=== PATIENT | female | born 1950 | race Caucasian/White ===

== ENCOUNTER 2024-04-12 13:03 | Observation (INO) | payer MEDICARE, SELFPAY ==
[2024-04-12] VITALS (10 sets, daily range): BP systolic 117–169; BP diastolic 70–88; PULSE 80–166; RESP 15–22; TEMP 36.6–36.7; O2SAT 94–97; BMI 31.0
--- NOTE | 2024-04-12 13:20 | ECG_ITS ---
[facility] Test Date: 2024-04-12 Pat Name: Daniela Gray Department: Room: Gender: Female Assistant Account Executive: : 1950 Requested By: Krystian Liu Order Number: [id number] Bobby MD: Aleks Delaney M.D. Measurements Intervals [place] Rate: 111 P: 0 ME: 0 QRS: 61 QRSD: 86 T: 8 QT: 344 QTc: 469 Interpretive Statements ATRIAL FIBRILLATION WITH RAPID VENTRICULAR RESPONSE NONSPECIFIC ST & T-WAVE ABNORMALITY No previous ECG available for comparison Electronically Signed On 04-13-2024 21:57:51 NEW CAR MAKE READY WORKER by Aleks Delaney M.D. [id number]
--- NOTE | 2024-04-12 13:33 | XR_ITS ---
WS: [id number] Portable AP upright chest, 04/12/2024 Clinical Data: sob Comparison: None. Findings: No nodules, masses or effusions are seen. The heart is normal. The pulmonary vascularity is not increased. No pneumonia or pneumothorax is seen. The aortic arch shows mild tortuosity. There are monitor leads on the chest wall. XR/XR chest 1V portable [id number] Impression: Atherosclerosis.
--- NOTE | 2024-04-12 13:56 | ECG_ITS ---
[facility] Test Date: 2024-04-12 Pat Name: Daniela Gray Department: Room: Gender: Female Manager Food Safety: : 1950 Requested By: Krystian Liu Order Number: [id number] Bobby MD: Aleks Delaney M.D. Measurements Intervals [place] Rate: 83 P: -12 DE: 141 QRS: 52 QRSD: 80 T: 45 QT: 362 QTc: 427 Interpretive Statements SINUS RHYTHM NONSPECIFIC T-WAVE ABNORMALITY Compared to ECG 04/12/2024 13:23:20 Atrial fibrillation no longer present T-wave abnormality still present Electronically Signed On 04-13-2024 21:57:26 BOBCAT OPERATOR by Aleks Delaney M.D. [id number] [id number]
--- NOTE | 2024-04-12 14:01 | ED_ITS ---
HPI - Arrhythmia/Palpitations 2 General: Chief Complaint: Arrhythmia/Palpitations Stated Complaint: FLU Time Seen by Provider: 04/12/24 13:33 Source: patient Mode of arrival: ambulatory Limitations: no limitations History of Present Illness: 73-year-old female who states that she h as not felt well over the last 3 to 4 days had some flulike symptoms states she has had cough congestion and fatigue states today she had felt nervous she is also having some palpitations. Denies any chest pain denies any history of heart arrhythmias she denies any diarrhea. Related Data Home Medications ?Medication ?Instructions ?Recorded ?Confirmed alprazolam 0.5 mg tablet 0.5 mg PO TID 04/12/2404/12 baclofen 10 mg tablet 10 mg PO BID 04/12/24 fluoxetine 10 mg capsule 10 mg PO BID 04/12/24 fluticasone propionate 50 2 spray intranasal DAILY 07/3004/12/24 mcg/actuation nasal spray,suspension Allergies Allergy/AdvReac Type Severity Reaction Status Date / Time Sulfa (Sulfonamide Allergy ALGY-Rash Verified 04/12/24 13:21 Antibiotics) Course 2 Vital Signs: Vital signs: Vital Signs Temperature 98 F 04/12/24 13:15 Pulse Rate 88 04/12/24 13:15 Respiratory Rate 17 04/12/24 13:15 Blood Pressure 117/78 04/12/24 13:15 Pulse Oximetry 94 04/12/24 13:15 Oxygen Delivery Me thod Room Air 04/12/24 13:15 MDM - Arrhythmia/Palpitations Medical Decision Making Patient presents here with flulike symptoms did test positive for the flu she is also hyponatremic she did have A-fib when she first arrived but is spontaneously converted with [place]'s I spoke to hospitalist and will admit for observation. Medical Records I reviewed the patient's medical records. Lab Data I reviewed the patient's lab results. 04/12/24 13:54 04/12/24 13:54 Radiology Impressions Chest X-Ray 04/12/24 13:33 Impression: Atherosclerosis. Laboratory Results WBC 3.73 10^3/uL (3.29-11.43) 04/12/24 13:54 RBC 5.17 10^6/uL (3.85-5.65) 04/12/24 13:54 Hgb 15.20 g/dL (11.27-16.99) 04/12/24 13:54 Hct 44.7 % (36-47) 04/12/24 13:54 MCV 86.5 fl (85-98) 04/12/24 13:54 MCH 29.4 pg (27-33) 04/12/24 13:54 MCHC 34.0 g/dL (30-55) 04/12/24 13:54 RDW 13.2 % (12.1-15.1) 04/12/24 13:54 Plt Count 255 10^3/cmm (157-399) 04/12/24 13:54 MPV 10.3 fL (7.4-10.4) 04/12/24 13:54 Neut % (Auto) 68.5 % 04/12/24 13:54 Lymph % (Auto) 15.3 % 04/12/24 13:54 [place] % (Auto) 15.3 % 04/12/24 13:54 Eos % (Auto) 0.3 % 04/12/24 13:54 Baso % (Auto) 0.3 % 04/12/24 13:54 Neut # (Auto) 2.56 10^3/uL (1.8-7.7) 04/12/24 13:54 Lymph # (Auto) 0.6 10^3/uL (0.8-4.8) L 04/12/24 13:54 [place] # (Auto) 0.6 10^3/uL (0.2-0.9) 04/12/24 13:54 Eos # (Auto) 0.0 10^3/uL (0.0-0.8) 04/12/24 13:54 Baso # (Auto) 0.0 10^3/uL (0.0-0.1) 04/12/24 13:54 Nucleated RBC % (auto) 0 % 04/12/24 13:54 Nucleated RBCs # 0.0 /100WBC 04/12/24 13:54 Sodium 126 mmol/L (136-145) L 04/12/24 13:54 Potassium 4.4 mmol/L (3.5-5.1) 04/12/24 13:54 Chloride 87 mmol/L (98-107) L 04/12/24 13:54 Carbon Dioxide 25 mmol/L (22-29) 04/12/24 13:54 Anion Gap 18.4 (5-19) 04/12/24 13:54 BUN 9 mg/dL (8-23) 04/12/24 13:54 Creatinine 0.6 mg/dL (0.5-0.9) 04/12/24 13:54 GFR Calculation Not Reportable 04/12/24 13:54 Glucose 110 mg/dL (65-115) 04/12/24 13:54 Calculated Osmolality 261 mOsm/kg (285-295) L 04/12/24 13:54 Calcium 9.0 mg/dL (8.5-10.5) 04/12/24 13:54 Magnesium 2.0 mg/dL (1.7-2.3) 04/12/24 13:54 Total Bilirubin 0.4 mg/dL (0.15-1.2) 04/12/24 13:54 AST 21 U/L (0-32) 04/12/24 13:54 ALT 14 U/L (0-33) 04/12/24 13:54 Alkaline Phosphatase 112 U/L (35-105) H 04/12/24 13:54 Troponin T Baseline 10 ng/L (0-10) 04/12/24 13:54 Total Protein 7.6 g/dL (6.6-8.7) 04/12/24 13:54 Albumin 4.7 g/dL (3.5-5.2) 04/12/24 13:54 Globulin 2.9 g/dL (1.3-4.6) 04/12/24 13:54 TSH 2.85 uIU/mL (0.27-4.20) 04/12/24 13:54 Urine Color Yellow (Yellow) 04/12/24 14:43 Urine Appearance Clear (CLEAR) 04/12/24 14:43 Urine pH 6.0 (5-7) 04/12/24 14:43 Ur Specific [place] 1.016 (1.005-1.030) 04/12/24 14:43 Urine Protein 2+ (Negative) A 04/12/24 14:43 Urine Glucose (UA) Negative (Normal) 04/12/24 14:43 Urine Ketones 3+ (Negative) H 04/12/24 14:43 Urine Blood Negative (Negative) 04/12/24 14:43 Urine Nitrate Negative (Negative) 04/12/24 14:43 Urine Bilirubin Negative (Negative) 04/12/24 14:43 Urine Urobilinogen 0.2 mg/dL (Negative) 04/12/24 14:43 Ur Leukocyte Esterase Negative (Negative) 04/12/24 14:43 Urine RBC 11-20 /hpf (0-2) H 04/12/24 14:43 Urine WBC 0-5 /hpf (0-5) 04/12/24 14:43 Ur Squamous Epith Cells 0-5 /hpf (0-5) 04/12/24 14:43 Amorphous Sediment Not Reportable 04/12/24 14:43 Urine Bacteria Trace /hpf (NONE) 04/12/24 14:43 Hyaline Casts 6.17 /lpf 04/12/24 14:43 Coronavirus (PCR) Negative (Negative) 04/12/24 15:19 Influenza A (PCR) Positive (Negative) 04/12/24 15:19 Influenza Type B (PCR) Negative (Negative) 04/12/24 15:19 RSV (PCR) Negative (Negative) 04/12/24 15:19 All radiology interpretation(s) finalized by discharge EKG Data EKG 1: I personally reviewed and interpreted this EKG as follows: EKG interpretation date: 04/12/24 EKG interpretation time: 13:23 Interpretation: afib hr [address] elevation qrs 86 qtc 410 Other EKG comments: Chest X-Ray 04/12/24 13:33 Impression: Atherosclerosis. EKG 2: I personally reviewed and interpreted this EKG as follows: EKG interpretation date: 04/12/24 EKG interpretation time: 14:28 Interpretation: nsr hr [address] or t wave abnormalities qrs 80 qtc 402 Other EKG comments: Chest X-Ray 04/12/24 13:33 Impression: Atherosclerosis. Discharge Plan Discharge Patient Disposition: Admitted As Inpatient Clinical Impression: Influenza A, Atrial fibrillation, Hyponatremia Condition: Stable Prescriptions: No Action alprazolam 0.5 mg tablet 0.5 mg PO TID baclofen 10 mg tablet 10 mg PO BID fluoxetine 10 mg capsule 10 mg PO BID fluticasone propionate 50 mcg/actuation spray,suspension 2 spray INTRANASAL DAILY Referrals: Cheng,Flores, LOOM OPERATOR APPRENTICE [Primary Care Provider] - Print Language: Irish Coding Level of Care Code ED Rounding And Backing Machine Operator for Marylou Polo
[2024-04-12 14:09] LABS: Basophils % 0.3 %; Eosinophils % 0.3 %; Hematocrit 44.7 % (36-47); Lymphocytes # 0.6 10^3/uL (0.8-4.8); Lymphocytes % 15.3 %; Mean Corpuscular Hemoglobin 29.4 pg (27-33); Mean Corpuscular Volume 86.5 fl (85-98); Mean Platelet Volume 10.3 fL (7.4-10.4); Monocytes # 0.6 10^3/uL (0.2-0.9); Monocytes % 15.3 %; Neutrophils # 2.56 10^3/uL (1.8-7.7); Neutrophils % 68.5 %; Nucleated Red Blood Cells % 0 %; Platelet Count 255 10^3/cmm (157-399); Red Blood Count 5.17 10^6/uL (3.85-5.65); Red Cell Distribution Width 13.2 % (12.1-15.1); White Blood Count 3.73 10^3/uL (3.29-11.43)
[2024-04-12] MEDS: sodium chloride 0.9% 1,000 ML 999 ML IV (14:19)
[2024-04-12 14:22] LABS: Troponin(5th) Baseline 10 ng/L (0-10)
[2024-04-12 14:45] LABS: Alanine Aminotransferase 14 U/L (0-33); Albumin Level 4.7 g/dL (3.5-5.2); Alkaline Phosphatase 112 U/L (35-105); Anion Gap 18.4 (5-19); Aspartate Amino Transferase 21 U/L (0-32); Blood Urea Nitrogen 9 mg/dL (8-23); Carbon Dioxide 25 mmol/L (22-29); Chloride 87 mmol/L (98-107); Creatinine Clr Calc Pharmacy 74.5029; Globulin 2.9 g/dL (1.3-4.6); Glucose 110 mg/dL (65-115); Osmolality Calculated 261 mOsm/kg (285-295); Potassium 4.4 mmol/L (3.5-5.1); Sodium 126 mmol/L (136-145); Thyroid Stimulating Hormone 2.85 uIU/mL (0.27-4.20); Total Bilirubin 0.4 mg/dL (0.15-1.2); Total Protein 7.6 g/dL (6.6-8.7)
[2024-04-12 15:01] LABS: Bilirubin Urine Negative (Negative); Blood Urine Negative (Negative); Glucose Urine UA Negative (Normal); Ketones Urine 3+ (Negative); Leukocyte Esterase Urine Negative (Negative); Nitrate Urine Negative (Negative); Protein Urine 2+ (Negative); Specific Gravity, Urine 1.016 (1.005-1.030); Urine Appearance Clear (CLEAR); Urine Color Yellow (Yellow); Urobilinogen Urine 0.2 mg/dL (Negative)
[2024-04-12 15:04] LABS: Add Urine Microscopic? YES; Bacteria Urine Trace /hpf; Hyaline Casts Urine 6.17 /lpf; Squamous Epithelial Cell Urine 0-5 /hpf (0-5); WBC Urine 0-5 /hpf (0-5)
--- NOTE | 2024-04-12 15:24 | ECG_ITS ---
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 Measurements Intervals [place] Rate: 79 P: -4 ID: 139 QRS: 54 QRSD: 86 T: 58 QT: 327 QTc: 376 Interpretive Statements SINUS RHYTHM NONSPECIFIC T-WAVE ABNORMALITY Compared to ECG 04/12/2024 14:28:32 No significant changes Electronically Signed On 04-13-2024 22:18:55 DOT NET ARCHITECT by Aleks Delaney M.D. [id number]
[2024-04-12 16:14] LABS: Influenza A POSITIVE (Negative); Influenza B NEGATIVE (Negative); Respiratory Syncytial Virus Ce NEGATIVE (Negative); SARS-CoV-2 PCR NEGATIVE (Negative)
[2024-04-12 16:55] LABS: Troponin 5 2HR 8.94 ng/L (0-10)
[2024-04-12 17:00] LABS: Troponin 5 2HR Delta -1.06 ABS# (0-10)
--- NOTE | 2024-04-12 17:00 | PM.HP ---
Providers/Chief Complaint Admitting Physician: Kat Apple MD Primary Care Provider: ASHA Jorge Chief Complaint: FLU History of Present Illness Daniela Grya is a 73 year old female with a PMH reactive airway disease, ? factor V heterozygous state, presenting to the hospital with URI type symptoms which are worsening over past 4-5 days. Patient states that her grandson was sick with FLu last week and few days afterwards she developed nasal and chest congestion with cough. She has a h/o reactive airway disease and felt herself to be wheezing. She has been usin nebulizer at home withput significant relief. Also c/o palpitations, per EMS report and ER report, she had transient A fib with RVR which resolved spontaneously. Patient stated that she has had intermittent palpiattions over the years. In her 20s, she was diagnosed with bigeminy and trigeminy rhythm after the delivery of her child. % years ago she had a holter monitor placed which was negative for any A fib but had shown multiple VPCs. SHe has taken metoprolol intermittently, but avoids using it as she feels it precipitates bronchospasm. The last time she needed this medication was 6 months ago. She has had a poor appetite and poor po intake last 3-4 days. She has been drinking gatorade and urinating a lot. Review of Systems General: Reports: 10 or more systems reviewed and unremarkable except in HPI and below Const: Denies: fever(s), chills or body aches Eyes: Denies: change in vision, blurry vision or photophobia ENMT: Reports: hoarseness; Denies: throat pain, enlarged tonsils, odynophagia or nasal congestion Card: Denies: chest pain, palpitations, irregular heart rhythm, edema, swelling of feet/ankles, lightheadedness, pre-syncope, dyspnea on exertion or orthopnea Resp: Denies: dyspnea, productive cough, non-productive cough, wheezing, stridor, pain on inspiration, change in phlegm color, hemoptysis or chest congestion GI: Denies: abdominal pain, nausea, vomiting, hematemesis, coffee ground emesis, dysphagia, heartburn, diarrhea, constipation, GI cramping, change in stool character, hematochezia or melena : Denies: flank pain, difficulty voiding, dysuria, urinary frequency, urinary urgency, urinary hesitancy or hematuria Musc: Denies: neck pain, back pain, extremity pain, joint swelling, joint warmth or deformity Neuro: Denies: headache(s), numbness in extremities, weakness in extremities, sensory changes, difficulty walking, frequent falls, dizziness, vertigo, behavioral changes, Slurred speech present or seizure-like activity Psych: Denies: anxiety, depression, suicidal ideation or homicidal ideation Endo: Denies: polyuria, polydipsia, tired all the time, cold intolerance or hot flashes Sammy/Lymph: Denies: easy bruising or easy bleeding Medications/Allergies Home Medications ?Medication ?Instructions ?Recorded ?Confirmed ?Last Taken ?Type alprazolam 0.5 mg tablet 0.5 mg PO TID PRN Anxiety 04/12/24 04/12/24 04/11/24 12:00 History baclofen 10 mg tablet 10 mg PO BID PRN Pain 04/12/24 04/12/24 03/27/24 19:00 History fluoxetine 10 mg capsule 10 mg PO BID 04/12/24 04/12/24 Unknown History fluticasone propionate 50 2 spray intranasal DAILY PRN 04/12/24 04/12/24 04/10/24 07:00 History mcg/actuation nasal Congestion spray,suspension Allergies Allergy/AdvReac Type Severity Reaction Status Date / Time Sulfa (Sulfonamide Allergy ALGY-Rash Verified 04/12/24 13:21 Antibiotics) PFSH Acute PFSH: Medical History (Updated 04/12/24 @ 21:42 by Kat Apple MD) Factor V Leiden carrier Reactive airway disease Vitals/I&O/Wt Last Vital Signs Temp 98 F 04/12/24 13:15 Pulse 88 04/12/24 13:15 Resp 17 04/12/24 13:15 BP 117/78 04/12/24 13:15 Pulse Ox 94 04/12/24 13:15 O2 Del Method Room Air 04/12/24 13:15 Weight last 48 hrs Weight 92.533 kg Physical Exam Narrative: General: No acute distress, AO x3 HEENT: PERRLA, pupils bilaterally equal and reactive, pallors not present Chest: B/L diffuse wheezing to auscultation all areas CVS: S1-S2 regular, no murmurs, no tachycardia, no gallops, no rubs Abdomen: Soft, nontender, no organomegaly, bowel sounds present Neuro: No focal deficits, no facial deformity, AO x3, power 5/5 in all limbs Extremities: no edema, clubbing or cyanosis Data 04/12/24 13:54 04/12/24 13:54 A&P Assessment and plan (1) Influenza A: patient testing + for influenza A CXR without gross consolidation Start Tamiflu 75mg BID supportive management incl nausea management (2) Reactive airway disease with acute exacerbation: likely triggered by acute viral illness with influenza Start duoneb and budesonide scheduled nebulization meythprednisone 40mg iv q24h monitor 02 saturation closely, currently at 94% on RA (3) Atrial fibrillation: reported A fib with RVR via EMS and ER resolved spontaneously has not taken any nasal decongestants Currently in sinus rhythm with HR @ 78 bpm at time of this assessment TSH WNL Previously evaluated for A fib with event monitor 5 years ago- patient states was not found to have any arrhythmias will monitor on telemetry to assess for any recurrence States she has only taken metoprolol prn previously due to concerns for bronchospasm Will prefer to use Cardizem in this setting Trop series unremarkable at 2 hrs check D dimer screen due to reported h/o ?factor V heterozygous state echocardiogram for new onset A fib (4) Hyponatremia: NA 126, may be related to dehydration and poor po intake from acute viral illness Start NS @ 50 cc /hr , repeat Na with am labs No current symptoms from hyponatremia Plan DVT ppx: lovenox Full code PDMP PDMP Reviewed: Not Reviewed Attestations Medical Necessity Statement*: less than 2 midnight stay currently anticipated Coding Level of Care Code Acute Code for Chg Fwd Diagnoses Influenza A J10.1 Reactive airway disease with acute exacerbation J45.901 Atrial fibrillation I48.91 Hyponatremia E87.1
[2024-04-12 17:26] LABS: D Dimer 0.93 ug/mLFEU (0-0.59)
[2024-04-12] MEDS: methylPREDNISolone sod succ 40 mg/mL INJ IVP (18:39)
[2024-04-12] MEDS: enoxaparin 40 mg/0.4 mL Syringe SUBCUT (18:39)
[2024-04-12] MEDS: oseltamivir phosphate 75 mg Capsule PO (18:39)
[2024-04-12] MEDS: sodium chloride 0.9% 1,000 ML 50 ML IV (18:40)
[2024-04-12 18:57] LABS: Potassium, Radom Urine 53 mmol/L; Urine Random Chloride 23 mmol/L; Urine Random Sodium 44 mmol/L
[2024-04-12] MEDS: ipratropium-albuterol 3 mL Neb INHALATION (20:41)
[2024-04-12] MEDS: budesonide 0.5 mg/2 mL Neb INHALATION (20:41)
--- NOTE | 2024-04-12 21:03 | ECG_ITS ---
[employer] Test Date: 2024-04-12 Pat Name: Daniela Gray Department: Room: 268 Gender: Female Vaccine Specialist: : 1950 Requested By: Krystian Liu Order Number: [id number] Bobby MD: Aleks Delaney M.D. Measurements Intervals [place] Rate: 150 P: 0 SD: 0 QRS: 70 QRSD: 81 T: 11 QT: 263 QTc: 415 Interpretive Statements ATRIAL FIBRILLATION WITH RAPID VENTRICULAR RESPONSE NONSPECIFIC ST & T-WAVE ABNORMALITY Compared to ECG 04/12/2024 15:24:30 Sinus rhythm no longer present T-wave abnormality still present Electronically Signed On 04-13-2024 22:17:37 WINDMILL TECHNICIAN by Aleks Delaney M.D. [id number]
[2024-04-12 21:08] LABS: Troponin 5 6HR 8.73 ng/L (0-10)
[2024-04-12 21:13] LABS: Troponin 5 6HR Delta -1.27 ng/L (0-12)
--- NOTE | 2024-04-12 21:31 | PC.NURSE ---
km in afib with rvr dr vu requesting that patient be transferred to [facility] on a [facility] drjohana
--- NOTE | 2024-04-12 21:52 | USCV_ITS ---
Daniela Gray Age: 73 Gender: F : 1950 Exam Date: 04/12/2024 23:52 Ordering Phys: Kat Apple MD Technologist: CHELY Exam Location: [facility] Indication: new Afib. BP: 169 / 70 HR: 76 Rhythm: Sinus Technical Quality: Adequate MEASUREMENTS (Male / Female) Normal Values 2D ECHO LV Diastolic Diameter PLAX 4.0 cm 4.2 - 5.9 / 3.9 - 5.3 cm IVS Diastolic Thickness 1.7 cm 0.6 - 1.0 / 0.6 - 0.9 cm IVS Systolic Thickness 2.4 cm LVPW Diastolic Thickness 1.3 cm 0.6 - 1.0 / 0.6 - 0.9 cm LVPW Systolic Thickness 1.6 cm LVOT Diameter 1.7 cm LV Ejection Fraction 2D Teich 73.8 % LV Ejection Fraction MOD 4C 62.8 % LV Ejection Fraction MOD 2C 74.5 % LV Ejection Fraction 2C AL 74.9 % LA Diameter 3.2 cm Aorta at Sinotubular Diameter 2.4 cm IVC Diameter 1.8 cm M-MODE LA Ao Ratio MM 1.7 AV Cusp Separation MM 1.6 cm DOPPLER AV Peak Velocity 139.0 cm/s LVOT Peak Velocity 103.0 cm/s AV Area Cont Eq vti 1.8 cm squared AV Area Cont Eq pk 1.6 cm squared MV Peak Velocity 120.0 cm/s MV Area PHT 3.4 cm squared Mitral E to A Ratio 0.8 TR Peak Velocity 251.0 cm/s TR Peak Gradient 25.2 mmHg TV Peak E Velocity 34.0 cm/s PV Peak Velocity 108.0 cm/s FINDINGS Left Ventricle Left ventricle is normal in size. LV systolic function is normal with EF of 65 - 70%. No regional wall motion abnormalities are seen. Grade 1 diastolic dysfunction. Right Ventricle Normal in size and function Right Atrium Normal in size Left Atrium Normal in size Mitral Valve Structurally normal mitral valve. Mild mitral regurgitation. Aortic Valve Structurally normal aortic valve. No significant stenosis. Tricuspid Valve Mild tricuspid regurgitation. Insufficient TR jet to calculate RVSP Pulmonic Valve Not well visualized Pericardium Normal Aorta Normal in size IVC Appears to be normal CONCLUSIONS LV systolic function is normal with EF of 65-70% Grade 1 diastolic dysfunction Mild mitral regurgitation Mild tricuspid regurgitation No comparison studies are available. Aleks Delaney MD (Electronically Signed) Final Date: 13 April 2024 11:10 S
[2024-04-12] MEDS: dilTIAZem 5 mg/mL SDV 5 mL 10 MG IVP (22:00)
--- NOTE | 2024-04-12 22:12 | ECG_ITS ---
[facility] Test Date: 2024-04-12 Pat Name: Daniela Gray Department: Room: 105 Gender: Female Manager Trading: : 1950 Requested By: Brandi Connors Order Number: [id number] Bobby MD: Aleks Delaney M.D. Measurements Intervals [place] Rate: 89 P: 66 HI: 141 QRS: 39 QRSD: 89 T: 35 QT: 392 QTc: 477 Interpretive Statements SINUS RHYTHM WITH OCCASIONAL SUPRAVENTRICULAR PREMATURE COMPLEXES NONSPECIFIC T-WAVE ABNORMALITY Compared to ECG 04/12/2024 21:03:03 Atrial fibrillation no longer present T-wave abnormality still present Electronically Signed On 04-13-2024 22:17:03 TELLER by Aleks Delaney M.D. [id number]
--- NOTE | 2024-04-12 22:22 | PC.NURSE ---
Attempted to notify pt listed in the chart of her room change, the number listed is not in service.
[2024-04-12] MEDS: ondansetron 2 mg/ML SDV 2 mL 4 MG IVP (22:26)
--- NOTE | 2024-04-12 22:42 | PC.NURSE ---
patient came up to the floor running afib on tele, asymptomatic. during paients breathing treatment she started running afib with RVR, heartrate in the 160s feeling shaky complaining of a headache and just no feeling well. nurse contacted dr vu he ordered cardizem 10mg IVP, nurse administered med, patients heartrate slowed down to the 120s 130s, and went right back up to 130s 140s 150s. dr vu ordered for her to be transferred to [facility] and to be started on a cardizem drip. nurse and RESERVES CLERK took patient down to [facility] report given at bedside
--- NOTE | 2024-04-12 22:54 | PC.NURSE ---
Patient bought to [facility] via bed at 2150. Report given at bedside by BK Parra. Patient is alert and oriented, vital signs WNL. Bedside telemetry appears to be sinus rhythm, obtained EKG to confirm. EKG showed sinus rhythm with occasional supraventricular premature complexes. Notified Dr. Connors to see if he still wanted to start Cardizem IV, given orders to not administer.
[2024-04-13] VITALS (13 sets, daily range): BP systolic 116–143; BP diastolic 59–74; PULSE 73–100; RESP 15–23; TEMP 36.6–37; O2SAT 93–97
[2024-04-13] MEDS: levalbuterol 0.63 mg/3 mL Neb INHALATION ×4 (01:23→20:52)
[2024-04-13] MEDS: ipratropium 0.5 mg/2.5 mL Neb INHALATION ×4 (01:24→20:52)
[2024-04-13] MEDS: ALPRAZolam 0.5 mg Tablet PO ×2 (02:07→10:55)
[2024-04-13 05:17] LABS: Hematocrit 38.4 % (36-47); Lymphocytes # 0.4 10^3/uL (0.8-4.8); Lymphocytes % 11.1 %; Mean Corpuscular HGB Conc 32.8 g/dL (30-55); Mean Corpuscular Volume 88.5 fl (85-98); Mean Platelet Volume 10.8 fL (7.4-10.4); Monocytes # 0.4 10^3/uL (0.2-0.9); Monocytes % 9.3 %; Neutrophils # 3.16 10^3/uL (1.8-7.7); Neutrophils % 79.3 %; Nucleated Red Blood Cells % 0 %; Platelet Count 241 10^3/cmm (157-399); Red Blood Count 4.34 10^6/uL (3.85-5.65); Red Cell Distribution Width 13.4 % (12.1-15.1); White Blood Count 3.98 10^3/uL (3.29-11.43)
[2024-04-13] MEDS: enoxaparin 100 mg/mL Syringe 90 MG SUBCUT ×2 (05:24→17:44)
[2024-04-13 05:34] LABS: Alanine Aminotransferase 12 U/L (0-33); Albumin Level 3.7 g/dL (3.5-5.2); Alkaline Phosphatase 86 U/L (35-105); Anion Gap 17.6 (5-19); Aspartate Amino Transferase 16 U/L (0-32); Blood Urea Nitrogen 12 mg/dL (8-23); Calcium 8.1 mg/dL (8.5-10.5); Carbon Dioxide 22 mmol/L (22-29); Chloride 96 mmol/L (98-107); Creatinine Clr Calc Pharmacy 74.5029; Globulin 3.1 g/dL (1.3-4.6); Glucose 130 mg/dL (65-115); Osmolality Calculated 276 mOsm/kg (285-295); Potassium 3.6 mmol/L (3.5-5.1); Sodium 132 mmol/L (136-145); Total Bilirubin 0.2 mg/dL (0.15-1.2); Total Protein 6.8 g/dL (6.6-8.7)
[2024-04-13] MEDS: oseltamivir phosphate 75 mg Capsule PO ×2 (08:15→17:43)
[2024-04-13] MEDS: pantoprazole DR 40 mg Tablet PO (08:15)
[2024-04-13] MEDS: budesonide 0.5 mg/2 mL Neb INHALATION ×2 (09:25→20:52)
--- NOTE | 2024-04-13 15:00 | PC.NURSE ---
Patient c/o diarrhea. Informed Dr Colmenares.
--- NOTE | 2024-04-13 17:14 | P.PN_ITS ---
Subjective 2 Subjective: Overnight had a fib with RVR with HR 160s, was trabsferred to [facility] for a cardizem drip however did not eventually need it as HR improved with cardizem oushes. Currently she remains rate controlled, HR is between sinus and P A fib intermittemtly. Dee feels better symptomatically Medications: Reviewed: Yes Vitals/I&O/Wt Last Vital Signs Temp 98.0 F 04/13/24 11:23 Pulse 81 04/13/24 16:00 Resp 21 H 04/13/24 16:00 BP 128/67 04/13/24 16:00 Pulse Ox 97 04/13/24 16:00 O2 Del Method Room Air 04/13/24 16:00 04/13/24 04/13/24 04/13/24 06:59 14:59 22:59 Intake Total 0 / 1000 1360 / 1360 Output Total 0 / 0 Balance 0 / 1000 1360 / 1360 Weight last 48 hrs Weight 92.533 kg Weight 92.533 kg Weight 92.533 kg Physical Exam 2 Narrative: General: No acute distress, AO x3 HEENT: PERRLA, pupils bilaterally equal and reactive, pallors not present Chest: B/L diffuse wheezing to auscultation all areas CVS: S1-S2 regular, no murmurs, no tachycardia, no gallops, no rubs Abdomen: Soft, nontender, no organomegaly, bowel sounds present Neuro: No focal deficits, no facial deformity, AO x3, power 5/5 in all limbs Extremities: no edema, clubbing or cyanosis Data 04/13/24 04:38 04/13/24 04:38 A&P Assessment and plan (1) Influenza A: patient testing + for influenza A CXR without gross consolidation Start Tamiflu 75mg BID supportive management incl nausea management (2) Reactive airway disease with acute exacerbation: likely triggered by acute viral illness with influenza Start duoneb and budesonide scheduled nebulization meythprednisone 40mg iv q24h monitor 02 saturation closely, currently at 94% on RA (3) Atrial fibrillation: reported A fib with RVR via EMS and ER resolved spontaneously has not taken any nasal decongestants Currently in sinus rhythm with HR @ 78 bpm at time of this assessment [facility] WNL Previously evaluated for A fib with event monitor 5 years ago- patient states was not found to have any arrhythmias will monitor on telemetry to assess for any recurrence States she has only taken metoprolol prn previously due to concerns for bronchospasm Will prefer to use Cardizem in this setting Trop series unremarkable at 2 hrs check D dimer screen due to reported h/o ?factor V heterozygous state echocardiogram for new onset A fib (4) Hyponatremia: NA 126, may be related to dehydration and poor po intake from acute viral illness Start NS @ 50 cc /hr , repeat Na with am labs No current symptoms from hyponatremia Plan DVT ppx: lovenox Full code 04/14/24: Improved Na at 132 today. D/c IVF after current bag runs out. feels better. less wheezing today , still with scattered right side wheeze. A fib RVR ovenright. Albuterol changed to Xopenex, will provide at discharge as well. Starte don cardizem 30mg BID for rate control today. Overnigth started on lovenox full dose a/c. Will change to eliquis at discharge. Echo with EF 65-70%, gr 1 diastolic dysfunvtion. H/o GerD- started protonix- closely monitor for any Gi bleeding. PDMP PDMP Reviewed: Not Reviewed Attestations 2 Medical Necessity Statement*: A fib with RVR, newly discovered, started cardizem, assess rate, continue steroids and bronchodilators, monitor on tele. Coding Level of Care Code Acute Code for Chg Fwd High MDM includes number and complexity of problems actively addressed during encounter, amount and/or complexity of data reviewed/ordered and described risk of complication, morbidity or mortality of management as documented Diagnoses Influenza A J10.1 Reactive airway disease with acute exacerbation J45.901 Atrial fibrillation I48.91 Hyponatremia E87.1
[2024-04-13] MEDS: dilTIAZem 30 mg Tablet PO (17:43)
[2024-04-13] MEDS: methylPREDNISolone sod succ 40 mg/mL INJ IVP (17:44)
[2024-04-14 00:44] VITALS: BP 133/69; PULSE 78; RESP 27; TEMP 36.9; O2SAT 93
[2024-04-14] MEDS: ALPRAZolam 0.5 mg Tablet PO ×2 (00:46→14:35)
[2024-04-14 04:17] VITALS: BP 121/70; PULSE 72; RESP 15; TEMP 36.3; O2SAT 97
[2024-04-14] MEDS: enoxaparin 100 mg/mL Syringe 90 MG SUBCUT (06:19)
[2024-04-14 08:00] VITALS: BP 137/78; PULSE 73; PULSE 77; RESP 18; RESP 23; TEMP 36.4; O2SAT 95
[2024-04-14] MEDS: oseltamivir phosphate 75 mg Capsule PO ×2 (08:24→17:36)
[2024-04-14] MEDS: pantoprazole DR 40 mg Tablet PO (08:24)
[2024-04-14] MEDS: dilTIAZem 30 mg Tablet PO ×2 (08:24→17:36)
--- NOTE | 2024-04-14 11:33 | CT_ITS ---
WS: [id number] CT HEAD NONCONTRAST HISTORY: persistent headache TECHNIQUE: Contiguous axial imaging performed through the brain. Bone and soft tissue windows. Sagittal and coronal reformats reviewed. All CT scans at [facility] use at least one of these dose optimization techniques: automated exposure control; mA and/or kV adjustment per patient size (includes targeted exams where dose is matched to clinical indication); or iterative reconstruction. DLP: 1084.88 mGy.cm COMPARISON: None available. No acute intracranial hemorrhage, midline shift or mass effect. Mild cerebral atrophy. Very minimal small vessel disease. No prior infarct. Ventricles: Normal size with no hydrocephalus. Paranasal sinuses: As visualized are clear. Mastoid air cells: Well pneumatized. Calvarium and scalp: Skull is intact with no soft tissue edema or swelling. CT/CT head wo con* [id number] IMPRESSION: 1. Very mild volume loss and small vessel disease. 2. No acute edema or hemorrhage.
[2024-04-14 12:00] VITALS: BP 159/93; PULSE 82; RESP 25; TEMP 36.8
[2024-04-14 12:38] VITALS: BP 159/93; PULSE 82; RESP 25; TEMP 36.8; O2SAT 95
[2024-04-14] MEDS: benzonatate 100 mg Capsule PO (13:13)
--- NOTE | 2024-04-14 15:23 | PM.DCS ---
Discharge Providers Date of Admission: 04/12/24 17:07 Date of Discharge: April 14, 2024 Attending Provider at Admission: Kat Apple MD Attending Provider at Discharge: Kat Apple MD Primary Care Provider: ASHA Jorge Diagnoses at Discharge Discharge Diagnosis (1) Influenza A: Status: Acute (2) Reactive airway disease with acute exacerbation: Status: Acute (3) Atrial fibrillation: Status: Acute (4) Hyponatremia: Status: Acute Reason for Visit Reason for Visit: FLU Hospital Course Hospital Course 73F who was admitted to the hospital with c/o worsening URI type symptoms for 4-5 days [employer]. She was found to be positive for influenza A and had diffuse wheezing consistent with a recative airway disease exacerbation. She was treated with iv steroids, Tamiflu and supportive care. She was also found to have A fib with RVR with HR 160s. She was started on cardizem 30mg BID which kept her in sinus rhythm, though she did have episodes of A fib which remained rate controlled. Albuterol was changed to xopenex. Event monitor has been arranged at discharge to estimate burden of A fib. Additionally patient reports that she has previously been diagnosed with other arrhythmias such as bigeminy, SVT , VPCs. Event monitor would help identify these. New medications at discharge include Xopenex inhlaer and nebulizer, Prednisone for 5 days, protonix for GErd and GI ppx, cardizem and Eliquis for A fib. Patient suspected she may have underlying Sleep apnea which can certainly contribute to A fib; sleep study ordered as outpatient. echo showed normal LVEF 65-70%, gr1 diastolic dysfunction, no obviosu valvular defects Physical Exam Narrative: General: No acute distress, AO x3 HEENT: PERRLA, pupils bilaterally equal and reactive, pallors not present Chest: Normal vesicular breath sounds, no added sounds, equal good air entry bilaterally CVS: S1-S2 regular, no murmurs, no tachycardia, no gallops, no rubs Abdomen: Soft, nontender, no organomegaly, bowel sounds present Neuro: No focal deficits, no facial deformity, AO x3, power 5/5 in all limbs Discharge Data Studies Completed and Pending Completed Studies During Hospitalization Category Date Time Status CT head wo con* [id number] Routine Cat Scan 04/14/24 11:33 Completed XR chest 1V portable [id number] Stat Exams 04/12/24 13:33 Completed CV. echo complete* [id number] Routine Ultrasound 04/12/24 21:52 Completed Radiology Impressions Chest X-Ray 04/12/24 13:33 Impression: Atherosclerosis. Head CT 04/14/24 11:33 IMPRESSION: 1. Very mild volume loss and small vessel disease. 2. No acute edema or hemorrhage. Laboratory Results WBC 3.98 10^3/uL (3.29-11.43) 04/13/24 04:38 RBC 4.34 10^6/uL (3.85-5.65) 04/13/24 04:38 Hgb 12.60 g/dL (11.27-16.99) 04/13/24 04:38 Hct 38.4 % (36-47) 04/13/24 04:38 MCV 88.5 fl (85-98) 04/13/24 04:38 MCH 29.0 pg (27-33) 04/13/24 04:38 MCHC 32.8 g/dL (30-55) 04/13/24 04:38 RDW 13.4 % (12.1-15.1) 04/13/24 04:38 Plt Count 241 10^3/cmm (157-399) 04/13/24 04:38 MPV 10.8 fL (7.4-10.4) H 04/13/24 04:38 Neut % (Auto) 79.3 % 04/13/24 04:38 Lymph % (Auto) 11.1 % 04/13/24 04:38 Dare % (Auto) 9.3 % 04/13/24 04:38 Eos % (Auto) 0.0 % 04/13/24 04:38 Baso % (Auto) 0.0 % 04/13/24 04:38 Neut # (Auto) 3.16 10^3/uL (1.8-7.7) 04/13/24 04:38 Lymph # (Auto) 0.4 10^3/uL (0.8-4.8) L 04/13/24 04:38 Dare # (Auto) 0.4 10^3/uL (0.2-0.9) 04/13/24 04:38 Eos # (Auto) 0.0 10^3/uL (0.0-0.8) 04/13/24 04:38 Baso # (Auto) 0.0 10^3/uL (0.0-0.1) 04/13/24 04:38 Nucleated RBC % (auto) 0 % 04/13/24 04:38 Nucleated RBCs # 0.0 /100WBC 04/13/24 04:38 D-Dimer 0.93 ug/mLFEU (0-0.59) H 04/12/24 13:54 Sodium 132 mmol/L (136-145) L 04/13/24 04:38 Potassium 3.6 mmol/L (3.5-5.1) 04/13/24 04:38 Chloride 96 mmol/L (98-107) L 04/13/24 04:38 Carbon Dioxide 22 mmol/L (22-29) 04/13/24 04:38 Anion Gap 17.6 (5-19) 04/13/24 04:38 BUN 12 mg/dL (8-23) 04/13/24 04:38 Creatinine 0.6 mg/dL (0.5-0.9) 04/13/24 04:38 GFR Calculation Not Reportable 04/13/24 04:38 Glucose 130 mg/dL (65-115) H 04/13/24 04:38 Calculated Osmolality 276 mOsm/kg (285-295) L 04/13/24 04:38 Calcium 8.1 mg/dL (8.5-10.5) L 04/13/24 04:38 Magnesium 2.0 mg/dL (1.7-2.3) 04/12/24 13:54 Total Bilirubin 0.2 mg/dL (0.15-1.2) 04/13/24 04:38 AST 16 U/L (0-32) 04/13/24 04:38 ALT 12 U/L (0-33) 04/13/24 04:38 Alkaline Phosphatase 86 U/L (35-105) 04/13/24 04:38 Troponin T Baseline 10 ng/L (0-10) 04/12/24 13:54 Troponin T 120 Minute 8.94 ng/L (0-10) 04/12/24 16:12 Delta Troponin T -1.06 ABS# (0-10) L 04/12/24 16:12 Troponin T Hi Sens 6Hr 8.73 ng/L (0-10) 04/12/24 20:28 Troponin T Hi Sens 6Hr Delta -1.27 ng/L (0-12) L 04/12/24 20:28 Total Protein 6.8 g/dL (6.6-8.7) 04/13/24 04:38 Albumin 3.7 g/dL (3.5-5.2) 04/13/24 04:38 Globulin 3.1 g/dL (1.3-4.6) 04/13/24 04:38 TSH 2.85 uIU/mL (0.27-4.20) 04/12/24 13:54 Urine Color Yellow (Yellow) 04/12/24 14:43 Urine Appearance Clear (CLEAR) 04/12/24 14:43 Urine pH 6.0 (5-7) 04/12/24 14:43 Ur Specific Sinclair 1.016 (1.005-1.030) 04/12/24 14:43 Urine Protein 2+ (Negative) A 04/12/24 14:43 Urine Glucose (UA) Negative (Normal) 04/12/24 14:43 Urine Ketones 3+ (Negative) H 04/12/24 14:43 Urine Blood Negative (Negative) 04/12/24 14:43 Urine Nitrate Negative (Negative) 04/12/24 14:43 Urine Bilirubin Negative (Negative) 04/12/24 14:43 Urine Urobilinogen 0.2 mg/dL (Negative) 04/12/24 14:43 Ur Leukocyte Esterase Negative (Negative) 04/12/24 14:43 Urine RBC 11-20 /hpf (0-2) H 04/12/24 14:43 Urine WBC 0-5 /hpf (0-5) 04/12/24 14:43 Ur Squamous Epith Cells 0-5 /hpf (0-5) 04/12/24 14:43 Amorphous Sediment Not Reportable 04/12/24 14:43 Urine Bacteria Trace /hpf (NONE) 04/12/24 14:43 Hyaline Casts 6.17 /lpf 04/12/24 14:43 Ur Random Sodium 44 mmol/L 04/12/24 14:43 Ur Random Potassium 53 mmol/L 04/12/24 14:43 Ur Random Chloride 23 mmol/L 04/12/24 14:43 Coronavirus (PCR) Negative (Negative) 04/12/24 15:19 Influenza A (PCR) Positive (Negative) 04/12/24 15:19 Influenza Type B (PCR) Negative (Negative) 04/12/24 15:19 RSV (PCR) Negative (Negative) 04/12/24 15:19 Vitals Last Vital Signs Temp 98.3 F 04/14/24 12:38 Pulse 82 04/14/24 12:38 Resp 25 H 04/14/24 12:38 BP 159/93 04/14/24 12:38 Pulse Ox 95 04/14/24 12:38 O2 Del Method Room Air 04/14/24 14:00 Discharge Plan Discharge Patient Disposition: Home Condition: Stable Prescriptions: New pantoprazole 40 mg Tablet,Delayed Release (Dr/Ec) 40 mg PO DAILY 30 Days Qty: 30 0RF oseltamivir 75 mg Capsule 75 mg PO BID 3 Days Qty: 6 0RF Eliquis 5 mg tablet 5 mg PO BID 30 Days Qty: 60 0RF prednisone 20 mg tablet 20 mg PO BID 5 Days Qty: 10 0RF levalbuterol tartrate [Xopenex HFA] 45 mcg/actuation HFA aerosol inhaler 1 puff inhalation Q6H Qty: 15 1RF budesonide 0.5 mg/2 mL Suspension For Nebulization 0.5 mg inhalation BID.RESPIRATORY 5 Days Qty: 20 0RF diltiazem HCl 30 mg Tablet 30 mg PO BID Qty: 60 0RF levalbuterol HCl 0.63 mg/3 mL Solution For Nebulization 0.63 mg inhalation Q6H.RESP 30 Days Qty: 360 0RF benzonatate 100 mg capsule 100 mg PO TID PRN (Reason: cough) Qty: 30 0RF acetaminophen-codeine 300-15 mg tablet 1 tab PO DAILY PRN (Reason: pain) 5 Days Qty: 5 0RF Continued alprazolam 0.5 mg tablet 0.5 mg PO TID PRN (Reason: Anxiety) baclofen 10 mg tablet 10 mg PO BID PRN (Reason: Pain) fluoxetine 10 mg capsule 10 mg PO BID fluticasone propionate 50 mcg/actuation spray,suspension 2 spray INTRANASAL DAILY PRN (Reason: Congestion) Discharge Orders: Discharge Order (Routine); Ordered 04/14/24 Ordered By: Kat Apple Other Ambulatory Orders: MCT/Event Monitor 21 Days (Routine) Timeframe: 20240414 Facility: [facility] - Location: Radiology Ordered By: Kat Apple Sleep Study/Titration (Routine) Timeframe: 3 Weeks Location: Determined by Patient Ordered By: Kat Apple Referrals: Brandi Mackenzie MD [Physician] - 06/20/24 1:30 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 Newly diagnosed A fib ) Flores Cheng FNP [Primary Care Provider] - 04/20/24 11:20 am (hospital discharge follow up for newly diagnosed A fib ) Patient Instructions: Benzonatate (By mouth) (Tessalon Perles, Zonatuss), Diltiazem (By mouth) (Cardizem, Cardizem CD, Cardizem LA, Cardizem SR), Acetaminophen/Codeine (By mouth), Prednisone (By mouth), Budesonide (By breathing), Levalbuterol (By breathing), Oseltamivir (By mouth) (Tamiflu), Pantoprazole (By mouth), Apixaban (By mouth), A-fib (Atrial Fibrillation) (ED), Hyponatremia (ED), Influenza (ED), Reactive Airways Disease (ED), Opioid Safety Discharge Attestations Time Spent in Discharge Care*: greater than 30 min Quality Metrics Clinical Quality Measures [ No reported AMI, CVA or VTE this stay] Coding Level of Care Code Acute Code for [facility] Fwd Diagnoses Influenza A J10.1 Reactive airway disease with acute exacerbation J45.901 Atrial fibrillation I48.91 Hyponatremia E87.1
[2024-04-14 16:00] VITALS: BP 140/75; PULSE 74; RESP 23
== END 2024-04-14 18:04 | disposition home or self-care (01) ==
LOC: ER 16:43 → MEDSURG 17:54 → CSU 04-13 02:17 → MEDSURG 04-13 07:33
PROVIDERS: Admitting Provider Student in an Organized Health Care Education/Training Program; Emergency Provider Emergency Medicine; PCP Registered Nurse; Visit Provider Student in an Organized Health Care Education/Training Program
DX: J10.1 Influenza due to other identified influenza virus with other respiratory manifestations (principal); I48.91 Unspecified atrial fibrillation; E87.1 Hypo-osmolality and hyponatremia; Z79.899 Other long term (current) drug therapy; Z88.2 Allergy status to sulfonamides; Z11.52 Encounter for screening for COVID-19; J45.901 Unspecified asthma with (acute) exacerbation; K21.9 Gastro-esophageal reflux disease without esophagitis; R00.2 Palpitations
CPT/HCPCS: 36415; 70450; 71045; 80053; 81001; 82436; 83735; 84133; 84300; 84443; 84484; 85025; 85378; 87637; 93005; 93306; 94640; 96361; 96365; 96366; 96372; 96375; 96376; 99285; A9270; G0378; J1650; J2405; J2919; J3490; J7030; J7614; J7626; J7644